=== PATIENT | female | born 1960 | race Caucasian/White ===

== ENCOUNTER → 2017-02-23 | Outpatient (CLI) | payer OTHER | END | disposition home or self-care (01) | LOC: CFH 12:06 | PROVIDERS: ATTEND Internal Medicine | DX: N20.0 Calculus of kidney (principal); M12.88 Other specific arthropathies, not elsewhere classified, other specified site; M47.896 Other spondylosis, lumbar region; D69.6 Thrombocytopenia, unspecified | CPT/HCPCS: 74176 ==

== ENCOUNTER → 2017-09-27 | Outpatient (CLI) | payer OTHER ==
[~2017-09-27] VITALS: Ht 170.2 cm; Wt 121.4 kg
[~2017-09-27] MED LIST: BACL-19 PO; BIMA2.5D EACHEYE; CHOL200024 PO; CIPR250T27 PO; CYAN1SPR2 NS; FENTANYL PF 100 MCG/2ML ONE; FLUT1BLS INH; GABA300C10 PO; HYDR200T PO; HYDR4TAB PO; KETAMINE 10 MG/ML, 20ML ONE; LACTATED RINGERS 1,000 ML IV SCH; LEVO88TA4 PO; LORA1TAB PO; METH4TAB PO; MIDAZOLAM 1 MG/ML, 2ML ONE; MULT-224 PO; OMEP-110 PO; PANT40TA5 PO; PRAV10TA2 PO; PRED10TA PO; PROPOFOL 150 ML ONE; PROPOFOL 50 ML ONE; RANI15SY PO; REMIFENTANIL 2 MG ONE; SERT100T5 PO; tylenol arthritis PO
[2017-09-27 06:51] VITALS: BP 125/77
== END | disposition home or self-care (01) ==
LOC: ORIP 06:15 → UNDOADMIN 06:15 → SDC 06:15 → UNDODISIN 08:41 → EDSTATUS 17:00
PROVIDERS: ATTEND Neurological Surgery
DX: Z01.812 Encounter for preprocedural laboratory examination (principal); M50.00 Cervical disc disorder with myelopathy, unspecified cervical region
CPT/HCPCS: 36415; 85025; 86850; 86900; J0171; J3490; J2250; J2704; J3010; J7120

== ENCOUNTER → 2018-01-12 | Outpatient (CLI) | payer OTHER ==
[~2018-01-12] MED LIST changes: -FENTANYL PF 100 MCG/2ML ONE; -HYDR200T PO; +HYDR200T72 PO; -KETAMINE 10 MG/ML, 20ML ONE; -LACTATED RINGERS 1,000 ML IV SCH; +METH4TAB7 PO; -MIDAZOLAM 1 MG/ML, 2ML ONE; -PROPOFOL 150 ML ONE; -PROPOFOL 50 ML ONE; -REMIFENTANIL 2 MG ONE
[2018-01-12 13:17] LABS: PROTHROMBIN TIME 10.4 Seconds (9.6-11.5)
[2018-01-12 13:19] LABS: MEAN CORPUSCULAR HEMOGLOBIN 32.1 pg (27.0-34.8); MEAN CORPUSCULAR HGB CONC 33.9 g/dL (32.4-35.8); MEAN CORPUSCULAR VOLUME 94.6 fL (80-100); RED BLOOD COUNT 4.91 x10^6/uL (3.82-5.3); RED CELL DISTRIBUTION WIDTH 15.1 % (9.6-15.2)
[2018-01-12 13:20] LABS: ANION GAP 7 mmol/L (5-15); CALCIUM 9.1 mg/dL (8.5-10.1); CHLORIDE 107 mmol/L (98-107); CREATININE 0.83 mg/dL (0.55-1.02)
[2018-01-12 14:02] LABS: MEAN PLATELET VOLUME 9.1 fL (7.4-10.4); PLATELET COUNT 91 x10^3/uL (130-400)
[2018-01-12 14:03] LABS: BASOPHILS # (AUTO) 0.05 x10^3/uL (0-0.1); BASOPHILS % (AUTO) 1 % (0-1); EOSINOPHILS # (AUTO) 0.07 x10^3/uL (0-0.4); EOSINOPHILS % (AUTO) 1 % (1-7); LYMPHOCYTES # (AUTO) 1.65 x10^3/uL (1-3.4); LYMPHOCYTES % (AUTO) 16 % (22-44); MD MORPH REVIEW ONLY; MONOCYTES # (AUTO) 0.63 x10^3/uL (0.2-0.8); MONOCYTES % (AUTO) 6 % (2-9); NEUTROPHILS # (AUTO) 7.89 x10^3/uL (1.8-6.8); NEUTROPHILS % (AUTO) 77 % (42-75)
[2018-01-12 14:05] LABS: <PLATELET ESTIMATE> DECREASED; <PLT MORPHOLOGY> NORMAL PLT MORPH; ANISOCYTOSIS 1+
== END | disposition home or self-care (01) ==
LOC: STAR 11:45
PROVIDERS: ATTEND Neurological Surgery
DX: Z01.818 Encounter for other preprocedural examination (principal); M47.26 Other spondylosis with radiculopathy, lumbar region; M48.061 Spinal stenosis, lumbar region without neurogenic claudication; G56.01 Carpal tunnel syndrome, right upper limb
CPT/HCPCS: 36415; 71046; 80048; 85025; 85610; 85730; 93005

== ENCOUNTER → 2018-05-07 | Outpatient (CLI) | payer OTHER ==
[~2018-05-07] MED LIST changes: +CALC-118 PO; +VARE1TAB21 PO; +[UNRECOGNIZED DRUG - OTHER] PO
[2018-05-07 16:10] LABS: INTERNATIONAL NORMALIZED RATIO 1.02 (0.93-1.1); PROTHROMBIN TIME 10.6 Seconds (9.6-11.5)
[2018-05-07 16:11] LABS: ALANINE AMINOTRANSFERASE 34 U/L (12-78); ALBUMIN 3.8 g/dL (3.4-5.0); ANION GAP 8 mmol/L (5-15); CHLORIDE 110 mmol/L (98-107); CREATININE 0.97 mg/dL (0.55-1.02)
[2018-05-07 16:13] LABS: ALKALINE PHOSPHATASE 74 U/L (45-117); BILIRUBIN,TOTAL 0.6 mg/dL (0.2-1.0); TOTAL PROTEIN 6.8 g/dL (6.4-8.2)
[2018-05-07 16:20] LABS: BASOPHILS # (AUTO) 0.03 x10^3/uL (0-0.1); BASOPHILS % (AUTO) 0 % (0-1); EOSINOPHILS # (AUTO) 0.02 x10^3/uL (0-0.4); EOSINOPHILS % (AUTO) 0 % (1-7); LYMPHOCYTES # (AUTO) 0.97 x10^3/uL (1-3.4); LYMPHOCYTES % (AUTO) 11 % (22-44); MD SCAN; MEAN CORPUSCULAR HGB CONC 33.7 g/dL (32.4-35.8); MEAN CORPUSCULAR VOLUME 94.9 fL (80-100); MEAN PLATELET VOLUME 9.4 fL (7.4-10.4); MONOCYTES % (AUTO) 5 % (2-9); NEUTROPHILS # (AUTO) 7.11 x10^3/uL (1.8-6.8); NEUTROPHILS % (AUTO) 83 % (42-75); PLATELET COUNT 92 x10^3/uL (130-400); RED BLOOD COUNT 4.84 x10^6/uL (3.82-5.3); RED CELL DISTRIBUTION WIDTH 13.2 % (9.6-15.2)
== END | disposition home or self-care (01) ==
LOC: STAR 14:40
PROVIDERS: ATTEND Neurological Surgery
DX: Z01.818 Encounter for other preprocedural examination (principal); M48.061 Spinal stenosis, lumbar region without neurogenic claudication; M43.06 Spondylolysis, lumbar region
CPT/HCPCS: 36415; 71046; 80053; 85025; 85610; 85730; 93005

== ENCOUNTER 2018-05-22 16:19 | Emergency (ER) | payer OTHER ==
[~2018-05-22] VITALS: Ht 170.2 cm; Wt 118.0 kg
[2018-05-22 16:22] VITALS: BP 119/73
== END 2018-05-22 17:34 ==
LOC: ED 17:10
DX: Z02.9 Encounter for administrative examinations, unspecified (principal)

== ENCOUNTER 2018-05-22 17:27 | Inpatient (IN) | payer OTHER ==
[~2018-05-22] VITALS: Ht 170.2 cm; Wt 113.8 kg
[2018-05-22 17:57] VITALS: BP 107/69
[2018-05-22] MEDS ORDERED: HYDROmorphone 4MG TABLET PO PRN (19:30)
[2018-05-22] MEDS ORDERED: ONDANSETRON 2MG/ML, 2ML IVPush PRN (19:30)
[2018-05-22] MEDS ORDERED: HYDROmorphone 2 MG/ML, 1ML IVPush PRN (19:30)
[2018-05-22] MEDS ORDERED: LORAZEPAM 1 MG PO PRN (19:30)
[2018-05-22 19:43] LABS: ALANINE AMINOTRANSFERASE 37 U/L (12-78); ALBUMIN 3.6 g/dL (3.4-5.0); ANION GAP 9 mmol/L (5-15); CALCIUM 8.9 mg/dL (8.5-10.1); CHLORIDE 107 mmol/L (98-107); CREATININE 0.89 mg/dL (0.55-1.02)
[2018-05-22 19:45] LABS: ALKALINE PHOSPHATASE 76 U/L (45-117); BILIRUBIN,TOTAL 0.5 mg/dL (0.2-1.0); TOTAL PROTEIN 6.6 g/dL (6.4-8.2)
[2018-05-22 19:51] LABS: INTERNATIONAL NORMALIZED RATIO 1.04 (0.93-1.1); PROTHROMBIN TIME 10.7 Seconds (9.6-11.5)
[2018-05-22 19:54] VITALS: BP 110/73
[2018-05-22 19:57] LABS: MEAN CORPUSCULAR HEMOGLOBIN 32.8 pg (27.0-34.8); MEAN CORPUSCULAR HGB CONC 34.6 g/dL (32.4-35.8); MEAN CORPUSCULAR VOLUME 94.8 fL (80-100); MEAN PLATELET VOLUME 9.4 fL (7.4-10.4); PLATELET COUNT 81 x10^3/uL (130-400); RED BLOOD COUNT 4.55 x10^6/uL (3.82-5.3); RED CELL DISTRIBUTION WIDTH 13.2 % (9.6-15.2)
[2018-05-22 19:59] LABS: BASOPHILS # (AUTO) 0.02 x10^3/uL (0-0.1); BASOPHILS % (AUTO) 0 % (0-1); EOSINOPHILS # (AUTO) 0.03 x10^3/uL (0-0.4); EOSINOPHILS % (AUTO) 0 % (1-7); LYMPHOCYTES % (AUTO) 13 % (22-44); MD SCAN; MONOCYTES # (AUTO) 0.42 x10^3/uL (0.2-0.8); MONOCYTES % (AUTO) 5 % (2-9); NEUTROPHILS % (AUTO) 81 % (42-75)
[2018-05-22] MEDS ORDERED: NICOTINE 14MG/24 HR PATCH.TD24 TD ONE (20:00)
[2018-05-22] MEDS ORDERED: LORAZEPAM MC SCH (20:00)
[2018-05-22] MEDS ORDERED: VARENICLINE 1MG TABLET PO SCH (21:00)
[2018-05-22] MEDS ORDERED: TYLENOL ARTHRITIS PO SCH (21:00)
[2018-05-22] MEDS ORDERED: HYDROmorphone 2MG TABLET ONE (21:23)
[2018-05-22] MEDS: PRAVASTATIN 20 MG TABLET PO SCH (21:28)
[2018-05-22] MEDS: GABAPENTIN 400 MG CAPSULE PO SCH (21:28)
[2018-05-22] MEDS: BACLOFEN 10 MG TABLET PO SCH (21:28)
[2018-05-22] MEDS: LORazepam 1MG TABLET PO PRN (22:12)
[2018-05-23] VITALS (9 sets, daily range): BP systolic 96–119; BP diastolic 44–75
[2018-05-23] MEDS ORDERED: HYDROCORTISONE 100 MG INJ. IVPush SCH (06:00)
[2018-05-23] MEDS ORDERED: LACTATED RINGERS 1,000 ML IV SCH (06:00)
[2018-05-23 06:03] LABS: BASOPHILS # (AUTO) 0.03 x10^3/uL (0-0.1); BASOPHILS % (AUTO) 0 % (0-1); EOSINOPHILS # (AUTO) 0.06 x10^3/uL (0-0.4); EOSINOPHILS % (AUTO) 1 % (1-7); LYMPHOCYTES # (AUTO) 2.18 x10^3/uL (1-3.4); LYMPHOCYTES % (AUTO) 31 % (22-44); MD NO; MEAN CORPUSCULAR HEMOGLOBIN 31.7 pg (27.0-34.8); MEAN CORPUSCULAR HGB CONC 33.6 g/dL (32.4-35.8); MEAN CORPUSCULAR VOLUME 94.2 fL (80-100); MEAN PLATELET VOLUME 8.9 fL (7.4-10.4); MONOCYTES # (AUTO) 0.41 x10^3/uL (0.2-0.8); MONOCYTES % (AUTO) 6 % (2-9); NEUTROPHILS # (AUTO) 4.31 x10^3/uL (1.8-6.8); NEUTROPHILS % (AUTO) 62 % (42-75); PLATELET COUNT 101 x10^3/uL (130-400); RED BLOOD COUNT 4.34 x10^6/uL (3.82-5.3); RED CELL DISTRIBUTION WIDTH 13.1 % (9.6-15.2)
[2018-05-23 06:22] LABS: CHLORIDE 111 mmol/L (98-107)
[2018-05-23] MEDS ORDERED: BUPIVACAINE/PF-EPI 0.5% 1:200K ONE (06:22)
[2018-05-23 06:23] LABS: ANION GAP 8 mmol/L (5-15); CALCIUM 8.9 mg/dL (8.5-10.1); CREATININE 0.77 mg/dL (0.55-1.02)
[2018-05-23] MEDS ORDERED: THROMBIN 5,000 UNIT VIAL TP ONE (06:23)
[2018-05-23] MEDS ORDERED: BACITRACIN 50,000 UNIT ONE (06:23)
[2018-05-23] MEDS ORDERED: METHYLENE BLUE 10 MG/ML 10ML ONE (06:23)
[2018-05-23] MEDS ORDERED: GABAPENTIN 300 MG CAPSULE PO ONE (07:00)
[2018-05-23] MEDS ORDERED: FAMOTIDINE 20 MG TABLET PO ONE (07:00)
[2018-05-23] MEDS ORDERED: ACETAMINOPHEN 500 MG TABLET PO ONE (07:00)
[2018-05-23] MEDS ORDERED: OxyconTIN ER 20 MG TAB.ER PO ONE (07:00)
[2018-05-23] MEDS ORDERED: FENTANYL PF 250 MCG/5ML ONE (07:01)
[2018-05-23] MEDS ORDERED: PROPOFOL 100 ML ONE (07:01)
[2018-05-23] MEDS ORDERED: MIDAZOLAM 1 MG/ML, 2ML ONE (07:01)
[2018-05-23] MEDS ORDERED: KETAMINE 10 MG/ML, 20ML ONE (07:12)
[2018-05-23] MEDS ORDERED: TRIAMCINOLONE ACETONIDE 40 MG/ML, 1ML ONE (07:12)
[2018-05-23] MEDS ORDERED: DEXAMETHASONE 4 MG/ML, 1ML ONE ×3 (07:18)
[2018-05-23] MEDS ORDERED: PANTOPROZOLE 40MG TABLET PO SCH (07:30)
[2018-05-23] MEDS ORDERED: ONDANSETRON 2MG/ML, 2ML ONE (07:33)
[2018-05-23] MEDS ORDERED: CEFAZOLIN 1,000 MG ONE ×2 (07:56→10:36)
[2018-05-23] MEDS: FLUTICASONE/VILANTEROL 200-25MCG/INH INH SCH (09:00)
[2018-05-23] MEDS: GABAPENTIN 400 MG CAPSULE PO SCH ×3 (09:00→20:16)
[2018-05-23] MEDS: BACLOFEN 10 MG TABLET PO SCH ×3 (09:00→20:15)
[2018-05-23] MEDS ORDERED: ROCURONIUM 10MG/ML,5ML ONE (09:12)
[2018-05-23] MEDS ORDERED: PROPOFOL 10 MG/ML, 20ML ONE ×3 (09:12)
[2018-05-23] MEDS ORDERED: MEPERIDINE/PF 25MG/0.5ML IVPush PRN (09:30)
[2018-05-23] MEDS ORDERED: ALBUTEROL/IPRATROPIUM 2.5MG/0.5MG, 3 ML NPPB PRN (09:30)
[2018-05-23] MEDS ORDERED: HYDROmorphone 1 MG/ML, 1ML IV PRN (09:30)
[2018-05-23] MEDS ORDERED: LABETALOL 5MG/ML, 20ML IV PRN (09:30)
[2018-05-23] MEDS ORDERED: hydrALAzine 20 MG/ML, 1ML IV PRN (09:30)
[2018-05-23] MEDS ORDERED: OXYcodone 5 MG/5 ML ORAL.SOL UDC PO PRN (09:30)
[2018-05-23] MEDS ORDERED: ONDANSETRON 2MG/ML, 2ML IV PRN (09:30)
[2018-05-23] MEDS ORDERED: PROMETHAZINE 25 MG/ML, 1ML IV PRN (09:30)
[2018-05-23] MEDS ORDERED: FENTANYL PF 100 MCG/2ML IV PRN (09:30)
[2018-05-23] MEDS ORDERED: HYDROmorphone 2 MG/ML, 1ML ONE ×2 (09:41→10:13)
[2018-05-23] MEDS ORDERED: OXYcodone 5 MG/5 ML ORAL.SOL UDC ONE (10:13)
[2018-05-23] MEDS ORDERED: HYDROmorphone PCA 30 MG/30 ML IV PRN (11:00)
[2018-05-23] MEDS ORDERED: BISACODYL 10 MG SUPP PR PRN (12:00)
[2018-05-23] MEDS ORDERED: PROMETHAZINE 25 MG/ML, 1ML IM PRN (12:00)
[2018-05-23] MEDS ORDERED: DIPHENHYDRAMINE 50 MG/ML, 1ML IM PRN (12:00)
[2018-05-23] MEDS ORDERED: DIPHENHYDRAMINE 50 MG/ML, 1ML IVPush PRN (12:00)
[2018-05-23] MEDS ORDERED: morphine SULFATE 10 MG/ML, 1ML IV PRN (12:00)
[2018-05-23] MEDS ORDERED: DIPHENHYDRAMINE 50 MG CAPSULE PO PRN (12:00)
[2018-05-23] MEDS ORDERED: METHOCARBAMOL 1,000 MG in DEXTROSE 5% 100 ML IV ONE (12:00)
[2018-05-23] MEDS ORDERED: MAGNESIUM HYDROXIDE 8%, 30ML UDC PO PRN (12:00)
[2018-05-23] MEDS: MULTIVITAMIN 1 TABLET PO SCH (12:04)
[2018-05-23] MEDS: CALCIUM/VITAMIN D3 250-125 TABLET PO SCH (12:04)
[2018-05-23] MEDS: SERTRALINE 100MG TABLET PO SCH (12:17)
[2018-05-23] MEDS: LEVOTHYROXINE 88 MCG TABLET PO SCH (12:17)
[2018-05-23] MEDS: NS + 20MEQ KCL 1,000 ML IV SCH ×2 (12:17→22:47)
[2018-05-23] MEDS: HYDROXYCHLOROQUINE 200 MG TABLET PO SCH (12:57)
[2018-05-23 13:08] LABS: MEAN CORPUSCULAR HEMOGLOBIN 32.3 pg (27.0-34.8); MEAN CORPUSCULAR HGB CONC 34.1 g/dL (32.4-35.8); MEAN CORPUSCULAR VOLUME 94.9 fL (80-100); MEAN PLATELET VOLUME 8.8 fL (7.4-10.4); PLATELET COUNT 88 x10^3/uL (130-400); RED BLOOD COUNT 4.34 x10^6/uL (3.82-5.3); RED CELL DISTRIBUTION WIDTH 13.4 % (9.6-15.2)
[2018-05-23 13:42] LABS: BASOPHILS % (AUTO) 0 % (0-1); EOSINOPHILS % (AUTO) 0 % (1-7); LYMPHOCYTES # (AUTO) 0.45 x10^3/uL (1-3.4); LYMPHOCYTES % (AUTO) 6 % (22-44); MD SCAN; MONOCYTES # (AUTO) 0.07 x10^3/uL (0.2-0.8); MONOCYTES % (AUTO) 1 % (2-9); NEUTROPHILS # (AUTO) 7.58 x10^3/uL (1.8-6.8); NEUTROPHILS % (AUTO) 94 % (42-75)
[2018-05-23] MEDS: methylPREDNISolone SOD SUCC 125 MG/2 ML IVPush SCH ×2 (15:26→20:15)
[2018-05-23] MEDS: CEFAZOLIN PMX 2GM/50ML 50 ML IVPB SCH ×2 (15:27→22:47)
[2018-05-23] MEDS ORDERED: PANTOPROZOLE 40MG TABLET ONE (20:09)
[2018-05-23] MEDS: LIDODERM 5% PATCH TD SCH (20:14)
[2018-05-23] MEDS: METHOCARBAMOL 750 MG in DEXTROSE 5% 100 ML IV SCH (20:15)
[2018-05-23] MEDS: PRAVASTATIN 20 MG TABLET PO SCH (20:15)
[2018-05-23] MEDS: PANTOPROZOLE 40MG TABLET PO SCH (20:16)
[2018-05-23] MEDS ORDERED: ZOLPIDEM 5MG TABLET PO PRN (21:00)
[2018-05-24] MEDS: METHOCARBAMOL 750 MG in DEXTROSE 5% 100 ML IV SCH ×3 (03:20→20:27)
[2018-05-24] MEDS: methylPREDNISolone SOD SUCC 125 MG/2 ML IVPush SCH ×2 (03:20→09:01)
[2018-05-24 04:40] LABS: ALBUMIN 3.1 g/dL (3.4-5.0); ANION GAP 8 mmol/L (5-15); CALCIUM 8.4 mg/dL (8.5-10.1); CHLORIDE 111 mmol/L (98-107)
[2018-05-24 04:44] LABS: ALANINE AMINOTRANSFERASE 36 U/L (12-78); ALKALINE PHOSPHATASE 72 U/L (45-117); BILIRUBIN,TOTAL 0.4 mg/dL (0.2-1.0); TOTAL PROTEIN 6.4 g/dL (6.4-8.2)
[2018-05-24 04:45] LABS: BASOPHILS # (AUTO) 0.01 x10^3/uL (0-0.1); BASOPHILS % (AUTO) 0 % (0-1); EOSINOPHILS % (AUTO) 0 % (1-7); LYMPHOCYTES # (AUTO) 0.57 x10^3/uL (1-3.4); LYMPHOCYTES % (AUTO) 5 % (22-44); MD NO; MEAN CORPUSCULAR HEMOGLOBIN 31.8 pg (27.0-34.8); MEAN CORPUSCULAR HGB CONC 33.6 g/dL (32.4-35.8); MEAN CORPUSCULAR VOLUME 94.7 fL (80-100); MEAN PLATELET VOLUME 9.2 fL (7.4-10.4); MONOCYTES # (AUTO) 0.29 x10^3/uL (0.2-0.8); MONOCYTES % (AUTO) 3 % (2-9); NEUTROPHILS # (AUTO) 10.49 x10^3/uL (1.8-6.8); NEUTROPHILS % (AUTO) 92 % (42-75); PLATELET COUNT 105 x10^3/uL (130-400); RED BLOOD COUNT 4.37 x10^6/uL (3.82-5.3)
[2018-05-24] MEDS: FLUTICASONE/VILANTEROL 200-25MCG/INH INH SCH (09:01)
[2018-05-24] MEDS: CEFAZOLIN PMX 2GM/50ML 50 ML IVPB SCH ×2 (09:01→16:33)
[2018-05-24] MEDS: GABAPENTIN 400 MG CAPSULE PO SCH ×3 (09:02→20:28)
[2018-05-24] MEDS: CALCIUM/VITAMIN D3 250-125 TABLET PO SCH (09:02)
[2018-05-24] MEDS: PANTOPROZOLE 40MG TABLET PO SCH ×2 (09:02→20:28)
[2018-05-24] MEDS: MULTIVITAMIN 1 TABLET PO SCH (09:02)
[2018-05-24] MEDS: SENNA/DOCUSATE TABLET PO SCH (09:03)
[2018-05-24] MEDS: HYDROXYCHLOROQUINE 200 MG TABLET PO SCH (09:03)
[2018-05-24] MEDS: SERTRALINE 100MG TABLET PO SCH (09:04)
[2018-05-24] MEDS: LEVOTHYROXINE 88 MCG TABLET PO SCH (09:04)
[2018-05-24] MEDS: BACLOFEN 10 MG TABLET PO SCH ×3 (09:13→20:28)
[2018-05-24] MEDS ORDERED: CALCIUM CARBONATE 500 MG TAB.CHEW PO PRN (11:00)
[2018-05-24] MEDS ORDERED: KETOROLAC 30 MG/1 ML IVPush SCH (11:00)
[2018-05-24] MEDS: VARENICLINE 1MG TABLET PO SCH ×2 (11:11→18:49)
[2018-05-24] MEDS ORDERED: KETOROLAC 30 MG/1 ML IVPush PRN (11:30)
[2018-05-24] MEDS ORDERED: HYDROmorphone 2MG TABLET ONE (12:13)
[2018-05-24] MEDS: HYDROmorphone 4MG TABLET PO PRN (12:15)
[2018-05-24] MEDS: HYDROCORTISONE 100 MG INJ. IVPush SCH (16:32)
[2018-05-24 16:44] VITALS: BP 100/66
[2018-05-24 19:53] VITALS: BP 116/74
[2018-05-24] MEDS: LIDODERM 5% PATCH TD SCH (20:27)
[2018-05-24] MEDS: PRAVASTATIN 20 MG TABLET PO SCH (20:27)
[2018-05-25] MEDS: HYDROCORTISONE 100 MG INJ. IVPush SCH ×3 (00:58→16:11)
[2018-05-25 02:05] VITALS: BP 126/80
[2018-05-25] MEDS: METHOCARBAMOL 750 MG in DEXTROSE 5% 100 ML IV SCH ×2 (04:04→12:24)
[2018-05-25 06:02] LABS: ALANINE AMINOTRANSFERASE 34 U/L (12-78); ALBUMIN 2.8 g/dL (3.4-5.0); ANION GAP 8 mmol/L (5-15); CALCIUM 8.5 mg/dL (8.5-10.1); CHLORIDE 112 mmol/L (98-107); CREATININE 0.66 mg/dL (0.55-1.02)
[2018-05-25 06:04] LABS: ALKALINE PHOSPHATASE 73 U/L (45-117); BILIRUBIN,TOTAL 0.4 mg/dL (0.2-1.0); TOTAL PROTEIN 6.1 g/dL (6.4-8.2)
[2018-05-25 06:22] LABS: BASOPHILS # (AUTO) 0.01 x10^3/uL (0-0.1); BASOPHILS % (AUTO) 0 % (0-1); EOSINOPHILS # (AUTO) 0.01 x10^3/uL (0-0.4); EOSINOPHILS % (AUTO) 0 % (1-7); LYMPHOCYTES # (AUTO) 0.76 x10^3/uL (1-3.4); LYMPHOCYTES % (AUTO) 6 % (22-44); MD SCAN; MEAN CORPUSCULAR HEMOGLOBIN 32.7 pg (27.0-34.8); MEAN CORPUSCULAR HGB CONC 34.1 g/dL (32.4-35.8); MEAN CORPUSCULAR VOLUME 95.8 fL (80-100); MEAN PLATELET VOLUME 9.3 fL (7.4-10.4); MONOCYTES # (AUTO) 0.47 x10^3/uL (0.2-0.8); MONOCYTES % (AUTO) 4 % (2-9); NEUTROPHILS # (AUTO) 12.12 x10^3/uL (1.8-6.8); NEUTROPHILS % (AUTO) 91 % (42-75); PLATELET COUNT 100 x10^3/uL (130-400); RED BLOOD COUNT 4.64 x10^6/uL (3.82-5.3); RED CELL DISTRIBUTION WIDTH 13.3 % (9.6-15.2)
[2018-05-25] MEDS ORDERED: HYDROmorphone 2MG TABLET ONE ×3 (06:29→20:30)
[2018-05-25] MEDS: HYDROmorphone 4MG TABLET PO PRN ×3 (06:30→20:33)
[2018-05-25 08:09] VITALS: BP 119/71
[2018-05-25] MEDS: FLUTICASONE/VILANTEROL 200-25MCG/INH INH SCH (08:48)
[2018-05-25] MEDS: CALCIUM/VITAMIN D3 250-125 TABLET PO SCH (08:49)
[2018-05-25] MEDS: LEVOTHYROXINE 88 MCG TABLET PO SCH (08:49)
[2018-05-25] MEDS: SERTRALINE 100MG TABLET PO SCH (08:50)
[2018-05-25] MEDS: PANTOPROZOLE 40MG TABLET PO SCH ×2 (08:50→20:33)
[2018-05-25] MEDS: HYDROXYCHLOROQUINE 200 MG TABLET PO SCH (08:50)
[2018-05-25] MEDS: VARENICLINE 1MG TABLET PO SCH ×2 (08:50→20:32)
[2018-05-25] MEDS: SENNA/DOCUSATE TABLET PO SCH (08:51)
[2018-05-25] MEDS: MULTIVITAMIN 1 TABLET PO SCH (08:51)
[2018-05-25] MEDS: BACLOFEN 10 MG TABLET PO SCH ×3 (08:51→20:32)
[2018-05-25] MEDS: GABAPENTIN 400 MG CAPSULE PO SCH ×3 (08:51→20:34)
[2018-05-25 13:39] VITALS: BP 98/63
[2018-05-25] MEDS ORDERED: MAALOX/HYOSCYAMINE/LIDOCAINE 45 ML BTL PO ONE (14:30)
[2018-05-25 19:23] VITALS: BP 118/61
[2018-05-25] MEDS: METHOCARBAMOL 750 MG TABLET PO SCH (20:00)
[2018-05-25] MEDS: LIDODERM 5% PATCH TD SCH (20:32)
[2018-05-25] MEDS: PRAVASTATIN 20 MG TABLET PO SCH (20:33)
[2018-05-26 02:11] VITALS: BP 106/71
[2018-05-26] MEDS: METHOCARBAMOL 750 MG TABLET PO SCH ×4 (04:00→21:26)
[2018-05-26] MEDS ORDERED: HYDROmorphone 2MG TABLET ONE ×2 (06:04→09:49)
[2018-05-26] MEDS: HYDROmorphone 4MG TABLET PO PRN ×3 (06:06→20:23)
[2018-05-26 08:21] VITALS: BP 94/61
[2018-05-26] MEDS: ALBUTEROL/IPRATROPIUM 2.5MG/0.5MG, 3 ML NPPB SCH ×4 (08:35→18:48)
[2018-05-26] MEDS ORDERED: ALBUTEROL/IPRATROPIUM 2.5MG/0.5MG, 3 ML ONE (08:39)
[2018-05-26] MEDS: SENNA/DOCUSATE TABLET PO SCH (09:00)
[2018-05-26] MEDS: VARENICLINE 1MG TABLET PO SCH ×2 (09:00→20:21)
[2018-05-26] MEDS: PANTOPROZOLE 40MG TABLET PO SCH ×2 (09:00→20:22)
[2018-05-26] MEDS: GABAPENTIN 400 MG CAPSULE PO SCH ×4 (09:00→20:31)
[2018-05-26] MEDS: MULTIVITAMIN 1 TABLET PO SCH (09:00)
[2018-05-26] MEDS: SERTRALINE 100MG TABLET PO SCH (09:00)
[2018-05-26] MEDS: HYDROXYCHLOROQUINE 200 MG TABLET PO SCH (09:00)
[2018-05-26] MEDS: BACLOFEN 10 MG TABLET PO SCH ×3 (09:00→20:22)
[2018-05-26] MEDS: LEVOTHYROXINE 88 MCG TABLET PO SCH (09:00)
[2018-05-26] MEDS: FLUTICASONE/VILANTEROL 200-25MCG/INH INH SCH (09:00)
[2018-05-26] MEDS: CALCIUM/VITAMIN D3 250-125 TABLET PO SCH (09:00)
[2018-05-26 09:43] LABS: O2 FLOW 6L L/min
[2018-05-26 10:42] LABS: ANION GAP 9 mmol/L (5-15); CALCIUM 8.5 mg/dL (8.5-10.1); CHLORIDE 107 mmol/L (98-107); CREATININE 0.77 mg/dL (0.55-1.02)
[2018-05-26 10:46] LABS: TROPONIN I < 0.015 ng/mL (0.000-0.045)
[2018-05-26 10:58] LABS: MEAN CORPUSCULAR HEMOGLOBIN 32.7 pg (27.0-34.8); MEAN CORPUSCULAR HGB CONC 34.4 g/dL (32.4-35.8); MEAN CORPUSCULAR VOLUME 95.1 fL (80-100); MEAN PLATELET VOLUME 8.9 fL (7.4-10.4); PLATELET COUNT 80 x10^3/uL (130-400); RED BLOOD COUNT 4.49 x10^6/uL (3.82-5.3); RED CELL DISTRIBUTION WIDTH 13.1 % (9.6-15.2)
[2018-05-26 11:04] LABS: BASOPHILS # (AUTO) 0.02 x10^3/uL (0-0.1); BASOPHILS % (AUTO) 0 % (0-1); EOSINOPHILS # (AUTO) 0.01 x10^3/uL (0-0.4); EOSINOPHILS % (AUTO) 0 % (1-7); LYMPHOCYTES # (AUTO) 1.08 x10^3/uL (1-3.4); LYMPHOCYTES % (AUTO) 13 % (22-44); MD SCAN; MONOCYTES # (AUTO) 0.08 x10^3/uL (0.2-0.8); MONOCYTES % (AUTO) 1 % (2-9); NEUTROPHILS # (AUTO) 7.29 x10^3/uL (1.8-6.8); NEUTROPHILS % (AUTO) 86 % (42-75)
[2018-05-26 12:19] VITALS: BP 90/61
[2018-05-26] MEDS ORDERED: FUROSEMIDE 40 MG/4 ML IV STA (13:02)
[2018-05-26] MEDS ORDERED: POTASSIUM CHLORIDE 20 MEQ TAB.ER.PRT PO ONE (13:30)
[2018-05-26 14:36] LABS: TROPONIN I < 0.015 ng/mL (0.000-0.045)
[2018-05-26] MEDS: FUROSEMIDE 40 MG/4 ML IV SCH (18:35)
[2018-05-26] MEDS ORDERED: POTASSIUM CHLORIDE 10% 40 MEQ/30 ML UDC PO ONE (19:00)
[2018-05-26] MEDS: LIDODERM 5% PATCH TD SCH (20:21)
[2018-05-26] MEDS: PRAVASTATIN 20 MG TABLET PO SCH (20:23)
[2018-05-27 04:34] LABS: MEAN CORPUSCULAR HEMOGLOBIN 32.7 pg (27.0-34.8); MEAN CORPUSCULAR HGB CONC 34.4 g/dL (32.4-35.8); RED BLOOD COUNT 4.18 x10^6/uL (3.82-5.3); RED CELL DISTRIBUTION WIDTH 13.5 % (9.6-15.2)
[2018-05-27 04:45] LABS: CHLORIDE 107 mmol/L (98-107)
[2018-05-27] MEDS: HYDROmorphone 4MG TABLET PO PRN ×5 (04:51→21:27)
[2018-05-27 04:54] LABS: BASOPHILS % (AUTO) 0 % (0-1); EOSINOPHILS # (AUTO) 0.01 x10^3/uL (0-0.4); EOSINOPHILS % (AUTO) 0 % (1-7); LYMPHOCYTES # (AUTO) 0.54 x10^3/uL (1-3.4); LYMPHOCYTES % (AUTO) 6 % (22-44); MD SCAN; MEAN PLATELET VOLUME 9.5 fL (7.4-10.4); MONOCYTES # (AUTO) 0.06 x10^3/uL (0.2-0.8); MONOCYTES % (AUTO) 1 % (2-9); NEUTROPHILS # (AUTO) 7.84 x10^3/uL (1.8-6.8); NEUTROPHILS % (AUTO) 93 % (42-75); PLATELET COUNT 71 x10^3/uL (130-400)
[2018-05-27 05:02] LABS: ALANINE AMINOTRANSFERASE 30 U/L (12-78); ALBUMIN 2.5 g/dL (3.4-5.0); ALKALINE PHOSPHATASE 85 U/L (45-117); ANION GAP 5 mmol/L (5-15); BILIRUBIN,TOTAL 1.4 mg/dL (0.2-1.0); CALCIUM 8.2 mg/dL (8.5-10.1); CREATININE 0.76 mg/dL (0.55-1.02); TOTAL PROTEIN 5.8 g/dL (6.4-8.2)
[2018-05-27] MEDS: ONDANSETRON 2MG/ML, 2ML IV PRN (05:10)
[2018-05-27] MEDS: METHOCARBAMOL 750 MG TABLET PO SCH ×3 (05:10→20:56)
[2018-05-27] MEDS: ALBUTEROL/IPRATROPIUM 2.5MG/0.5MG, 3 ML NPPB SCH ×4 (07:16→19:12)
[2018-05-27] MEDS: HEPARIN 5,000 UNITS/ML, 1ML SQ SCH ×2 (09:03→20:55)
[2018-05-27] MEDS: FLUTICASONE/VILANTEROL 200-25MCG/INH INH SCH (09:04)
[2018-05-27] MEDS: FUROSEMIDE 40 MG/4 ML IV SCH ×2 (09:04→17:34)
[2018-05-27] MEDS: HYDROXYCHLOROQUINE 200 MG TABLET PO SCH (09:05)
[2018-05-27] MEDS: GABAPENTIN 400 MG CAPSULE PO SCH ×3 (09:05→20:56)
[2018-05-27] MEDS: BACLOFEN 10 MG TABLET PO SCH ×3 (09:05→20:56)
[2018-05-27] MEDS: LEVOTHYROXINE 88 MCG TABLET PO SCH (09:05)
[2018-05-27] MEDS: MULTIVITAMIN 1 TABLET PO SCH (09:05)
[2018-05-27] MEDS: SENNA/DOCUSATE TABLET PO SCH (09:05)
[2018-05-27] MEDS: SERTRALINE 100MG TABLET PO SCH (09:06)
[2018-05-27] MEDS: PANTOPROZOLE 40MG TABLET PO SCH ×2 (09:06→20:56)
[2018-05-27] MEDS: VARENICLINE 1MG TABLET PO SCH ×2 (09:06→20:56)
[2018-05-27] MEDS: CALCIUM/VITAMIN D3 250-125 TABLET PO SCH (09:06)
[2018-05-27] MEDS: PRAVASTATIN 20 MG TABLET PO SCH (20:56)
[2018-05-27] MEDS: LIDODERM 5% PATCH TD SCH (20:58)
[2018-05-27 22:13] VITALS: BP 87/42
[2018-05-27 22:37] VITALS: BP 91/46
[2018-05-28 04:41] LABS: MEAN CORPUSCULAR HEMOGLOBIN 32.6 pg (27.0-34.8); MEAN CORPUSCULAR VOLUME 95.8 fL (80-100); MEAN PLATELET VOLUME 9.3 fL (7.4-10.4); PLATELET COUNT 81 x10^3/uL (130-400); RED CELL DISTRIBUTION WIDTH 13.6 % (9.6-15.2)
[2018-05-28 04:51] LABS: ANION GAP 8 mmol/L (5-15); CALCIUM 8.7 mg/dL (8.5-10.1); CHLORIDE 102 mmol/L (98-107); CREATININE 0.83 mg/dL (0.55-1.02)
[2018-05-28 05:40] LABS: BASOPHILS # (AUTO) 0.01 x10^3/uL (0-0.1); BASOPHILS % (AUTO) 0 % (0-1); EOSINOPHILS # (AUTO) 0.06 x10^3/uL (0-0.4); EOSINOPHILS % (AUTO) 1 % (1-7); LYMPHOCYTES # (AUTO) 0.58 x10^3/uL (1-3.4); LYMPHOCYTES % (AUTO) 7 % (22-44); MD SCAN; MONOCYTES # (AUTO) 0.06 x10^3/uL (0.2-0.8); MONOCYTES % (AUTO) 1 % (2-9); NEUTROPHILS # (AUTO) 7.65 x10^3/uL (1.8-6.8); NEUTROPHILS % (AUTO) 92 % (42-75)
[2018-05-28] MEDS: METHOCARBAMOL 750 MG TABLET PO SCH ×3 (06:11→22:17)
[2018-05-28] MEDS: FUROSEMIDE 40 MG/4 ML IV SCH ×2 (06:12→18:33)
[2018-05-28] MEDS: HYDROmorphone 4MG TABLET PO PRN ×5 (06:12→23:16)
[2018-05-28] MEDS: ALBUTEROL/IPRATROPIUM 2.5MG/0.5MG, 3 ML NPPB SCH (07:33)
[2018-05-28] MEDS: MULTIVITAMIN 1 TABLET PO SCH (09:00)
[2018-05-28] MEDS: CALCIUM/VITAMIN D3 250-125 TABLET PO SCH (09:00)
[2018-05-28] MEDS: GABAPENTIN 400 MG CAPSULE PO SCH ×3 (09:00→21:00)
[2018-05-28] MEDS: BACLOFEN 10 MG TABLET PO SCH ×3 (09:12→22:18)
[2018-05-28] MEDS: LEVOTHYROXINE 88 MCG TABLET PO SCH (09:13)
[2018-05-28] MEDS: SERTRALINE 100MG TABLET PO SCH (09:13)
[2018-05-28] MEDS: HEPARIN 5,000 UNITS/ML, 1ML SQ SCH ×2 (09:14→22:16)
[2018-05-28] MEDS: PANTOPROZOLE 40MG TABLET PO SCH ×2 (09:14→22:22)
[2018-05-28] MEDS: VARENICLINE 1MG TABLET PO SCH ×2 (09:15→21:00)
[2018-05-28] MEDS: HYDROXYCHLOROQUINE 200 MG TABLET PO SCH (09:15)
[2018-05-28] MEDS: SENNA/DOCUSATE TABLET PO SCH (09:16)
[2018-05-28] MEDS: FLUTICASONE/VILANTEROL 200-25MCG/INH INH SCH (09:26)
[2018-05-28] MEDS: POTASSIUM CHLORIDE 20 MEQ TAB.ER.PRT PO SCH ×2 (09:30→18:33)
[2018-05-28] MEDS ORDERED: ALBUTEROL/IPRATROPIUM 2.5MG/0.5MG, 3 ML ONE (10:22)
[2018-05-28] MEDS: ACETAMINOPHEN 325 MG TABLET PO SCH ×2 (10:55→22:17)
[2018-05-28] MEDS: ALBUTEROL/IPRATROPIUM 2.5MG/0.5MG, 3 ML IPPB SCH ×4 (11:00→22:38)
[2018-05-28 11:06] LABS: PLATELET (PFA) 86 x10^3/uL (130-400)
[2018-05-28] MEDS: MEROPENEM 1 GM in SODIUM CHLORIDE 0.9% 100 ML IV SCH ×2 (14:42→22:25)
[2018-05-28] MEDS: LIDODERM 5% PATCH TD SCH (20:02)
[2018-05-28] MEDS: PRAVASTATIN 20 MG TABLET PO SCH (22:17)
[2018-05-29] MEDS: ALBUTEROL/IPRATROPIUM 2.5MG/0.5MG, 3 ML IPPB SCH ×6 (02:20→22:42)
[2018-05-29] MEDS: HYDROmorphone 4MG TABLET PO PRN ×4 (03:46→21:51)
[2018-05-29 04:33] LABS: PLATELET (PFA) 78 x10^3/uL (130-400)
[2018-05-29 04:39] LABS: ANION GAP 5 mmol/L (5-15); CALCIUM 9.1 mg/dL (8.5-10.1); CHLORIDE 100 mmol/L (98-107); CREATININE 1.08 mg/dL (0.55-1.02)
[2018-05-29 04:40] LABS: MEAN CORPUSCULAR HEMOGLOBIN 32.5 pg (27.0-34.8); MEAN CORPUSCULAR HGB CONC 33.9 g/dL (32.4-35.8); MEAN CORPUSCULAR VOLUME 95.7 fL (80-100); MEAN PLATELET VOLUME 10.3 fL (7.4-10.4); PLATELET COUNT 80 x10^3/uL (130-400); RED BLOOD COUNT 4.01 x10^6/uL (3.82-5.3); RED CELL DISTRIBUTION WIDTH 13.3 % (9.6-15.2)
[2018-05-29 05:00] LABS: BASOPHILS % (AUTO) 0 % (0-1); EOSINOPHILS # (AUTO) 0.05 x10^3/uL (0-0.4); EOSINOPHILS % (AUTO) 1 % (1-7); LYMPHOCYTES # (AUTO) 0.61 x10^3/uL (1-3.4); LYMPHOCYTES % (AUTO) 11 % (22-44); MD SCAN; MONOCYTES # (AUTO) 0.17 x10^3/uL (0.2-0.8); MONOCYTES % (AUTO) 3 % (2-9); NEUTROPHILS # (AUTO) 4.94 x10^3/uL (1.8-6.8); NEUTROPHILS % (AUTO) 86 % (42-75)
[2018-05-29] MEDS: MEROPENEM 1 GM in SODIUM CHLORIDE 0.9% 100 ML IV SCH ×2 (06:17→15:17)
[2018-05-29] MEDS: FUROSEMIDE 40 MG/4 ML IV SCH ×2 (06:17→14:09)
[2018-05-29] MEDS: METHOCARBAMOL 750 MG TABLET PO SCH ×3 (06:18→22:11)
[2018-05-29] MEDS: FLUTICASONE/VILANTEROL 200-25MCG/INH INH SCH (09:00)
[2018-05-29] MEDS: VARENICLINE 1MG TABLET PO SCH ×2 (09:00→21:00)
[2018-05-29] MEDS: GABAPENTIN 400 MG CAPSULE PO SCH ×3 (09:00→21:00)
[2018-05-29] MEDS: HYDROXYCHLOROQUINE 200 MG TABLET PO SCH (09:00)
[2018-05-29] MEDS: SENNA/DOCUSATE TABLET PO SCH (09:00)
[2018-05-29] MEDS: MULTIVITAMIN 1 TABLET PO SCH (09:00)
[2018-05-29] MEDS: BACLOFEN 10 MG TABLET PO SCH ×3 (09:00→21:52)
[2018-05-29] MEDS: CALCIUM/VITAMIN D3 250-125 TABLET PO SCH (09:00)
[2018-05-29] MEDS: POTASSIUM CHLORIDE 20 MEQ TAB.ER.PRT PO SCH ×2 (09:15→21:53)
[2018-05-29] MEDS: HEPARIN 5,000 UNITS/ML, 1ML SQ SCH ×2 (10:26→21:54)
[2018-05-29] MEDS: ACETAMINOPHEN 325 MG TABLET PO SCH ×2 (10:26→21:00)
[2018-05-29] MEDS: AcetaZOLAMIDE INJ 500 MG IVPush SCH ×2 (10:26→21:55)
[2018-05-29] MEDS: LEVOTHYROXINE 88 MCG TABLET PO SCH (10:27)
[2018-05-29] MEDS: SERTRALINE 100MG TABLET PO SCH (10:27)
[2018-05-29] MEDS: PANTOPROZOLE 40MG TABLET PO SCH ×2 (10:27→21:52)
[2018-05-29] MEDS: LIDODERM 5% PATCH TD SCH ×2 (20:00→20:31)
[2018-05-29] MEDS: PRAVASTATIN 20 MG TABLET PO SCH (21:53)
[2018-05-29] MEDS: LORazepam 1MG TABLET PO PRN (22:11)
[2018-05-30] MEDS: HYDROmorphone 4MG TABLET PO PRN ×2 (02:01→21:01)
[2018-05-30] MEDS: ALBUTEROL/IPRATROPIUM 2.5MG/0.5MG, 3 ML IPPB SCH ×6 (02:47→23:00)
[2018-05-30] MEDS: FUROSEMIDE 40 MG/4 ML IV SCH ×3 (03:36→21:01)
[2018-05-30] MEDS: MEROPENEM 1 GM in SODIUM CHLORIDE 0.9% 100 ML IV SCH (03:37)
[2018-05-30 04:27] LABS: PLATELET (PFA) 93 x10^3/uL (130-400)
[2018-05-30 04:37] LABS: ANION GAP 9 mmol/L (5-15); CALCIUM 8.8 mg/dL (8.5-10.1); CHLORIDE 105 mmol/L (98-107); CREATININE 0.75 mg/dL (0.55-1.02)
[2018-05-30 04:42] LABS: FIO2 70 %
[2018-05-30] MEDS: METHOCARBAMOL 750 MG TABLET PO SCH ×3 (06:34→21:01)
[2018-05-30] MEDS: GABAPENTIN 400 MG CAPSULE PO SCH ×3 (09:00→21:00)
[2018-05-30] MEDS: VARENICLINE 1MG TABLET PO SCH ×2 (09:00→21:00)
[2018-05-30] MEDS: FLUTICASONE/VILANTEROL 200-25MCG/INH INH SCH (10:09)
[2018-05-30] MEDS: AcetaZOLAMIDE INJ 500 MG IVPush SCH (10:12)
[2018-05-30] MEDS: PANTOPROZOLE 40MG TABLET PO SCH ×2 (10:12→21:01)
[2018-05-30] MEDS: MULTIVITAMIN 1 TABLET PO SCH (10:12)
[2018-05-30] MEDS: SENNA/DOCUSATE TABLET PO SCH (10:13)
[2018-05-30] MEDS: ACETAMINOPHEN 325 MG TABLET PO SCH ×2 (10:13→21:01)
[2018-05-30] MEDS: BACLOFEN 10 MG TABLET PO SCH ×3 (10:13→21:01)
[2018-05-30] MEDS: CALCIUM/VITAMIN D3 250-125 TABLET PO SCH (10:13)
[2018-05-30] MEDS: LEVOTHYROXINE 88 MCG TABLET PO SCH (10:14)
[2018-05-30] MEDS: POTASSIUM CHLORIDE 20 MEQ TAB.ER.PRT PO SCH (10:14)
[2018-05-30] MEDS: SERTRALINE 100MG TABLET PO SCH (10:14)
[2018-05-30] MEDS: HYDROXYCHLOROQUINE 200 MG TABLET PO SCH (10:14)
[2018-05-30] MEDS: HEPARIN 5,000 UNITS/ML, 1ML SQ SCH ×2 (10:15→21:01)
[2018-05-30] MEDS: LIDODERM 5% PATCH TD SCH (20:00)
[2018-05-30] MEDS: PRAVASTATIN 20 MG TABLET PO SCH (21:01)
[2018-05-30] MEDS: LORazepam 1MG TABLET PO PRN (21:38)
[2018-05-31] MEDS: ALBUTEROL/IPRATROPIUM 2.5MG/0.5MG, 3 ML IPPB SCH ×4 (02:55→13:45)
[2018-05-31] MEDS: HYDROmorphone 4MG TABLET PO PRN ×4 (04:28→21:12)
[2018-05-31 04:43] LABS: BASOPHILS # (AUTO) 0.01 x10^3/uL (0-0.1); BASOPHILS % (AUTO) 0 % (0-1); EOSINOPHILS # (AUTO) 0.09 x10^3/uL (0-0.4); EOSINOPHILS % (AUTO) 1 % (1-7); LYMPHOCYTES # (AUTO) 0.87 x10^3/uL (1-3.4); LYMPHOCYTES % (AUTO) 14 % (22-44); MD NO; MEAN CORPUSCULAR HGB CONC 34.5 g/dL (32.4-35.8); MEAN CORPUSCULAR VOLUME 92.8 fL (80-100); MEAN PLATELET VOLUME 9.9 fL (7.4-10.4); MONOCYTES # (AUTO) 0.22 x10^3/uL (0.2-0.8); MONOCYTES % (AUTO) 4 % (2-9); NEUTROPHILS # (AUTO) 5.21 x10^3/uL (1.8-6.8); NEUTROPHILS % (AUTO) 81 % (42-75); PLATELET COUNT 105 x10^3/uL (130-400); RED CELL DISTRIBUTION WIDTH 13.7 % (9.6-15.2)
[2018-05-31 04:55] LABS: CHLORIDE 104 mmol/L (98-107)
[2018-05-31 05:04] LABS: ALANINE AMINOTRANSFERASE 51 U/L (12-78); ALBUMIN 2.4 g/dL (3.4-5.0); ALKALINE PHOSPHATASE 233 U/L (45-117); ANION GAP 11 mmol/L (5-15); BILIRUBIN,TOTAL 1.3 mg/dL (0.2-1.0); CALCIUM 9.3 mg/dL (8.5-10.1); CREATININE 0.82 mg/dL (0.55-1.02); TOTAL PROTEIN 7.2 g/dL (6.4-8.2)
[2018-05-31 05:19] LABS: PLATELET (PFA) 105 x10^3/uL (130-400)
[2018-05-31] MEDS: METHOCARBAMOL 750 MG TABLET PO SCH ×3 (05:40→20:58)
[2018-05-31] MEDS: FUROSEMIDE 40 MG/4 ML IV SCH ×3 (05:40→22:00)
[2018-05-31] MEDS: CALCIUM/VITAMIN D3 250-125 TABLET PO SCH (08:40)
[2018-05-31] MEDS: SENNA/DOCUSATE TABLET PO SCH (08:41)
[2018-05-31] MEDS: ACETAMINOPHEN 325 MG TABLET PO SCH ×3 (08:41→20:58)
[2018-05-31] MEDS: HEPARIN 5,000 UNITS/ML, 1ML SQ SCH ×2 (08:41→21:08)
[2018-05-31] MEDS: SERTRALINE 100MG TABLET PO SCH (08:41)
[2018-05-31] MEDS: PANTOPROZOLE 40MG TABLET PO SCH ×2 (08:41→20:58)
[2018-05-31] MEDS: BACLOFEN 10 MG TABLET PO SCH ×3 (08:41→20:57)
[2018-05-31] MEDS: MULTIVITAMIN 1 TABLET PO SCH (08:42)
[2018-05-31] MEDS: GABAPENTIN 400 MG CAPSULE PO SCH ×3 (08:42→16:00)
[2018-05-31] MEDS: HYDROXYCHLOROQUINE 200 MG TABLET PO SCH (08:42)
[2018-05-31] MEDS: VARENICLINE 1MG TABLET PO SCH ×3 (08:42→21:00)
[2018-05-31] MEDS: FLUTICASONE/VILANTEROL 200-25MCG/INH INH SCH (08:42)
[2018-05-31] MEDS: LEVOTHYROXINE 88 MCG TABLET PO SCH (12:05)
[2018-05-31] MEDS: ALBUTEROL/IPRATROPIUM 2.5MG/0.5MG, 3 ML NPPB SCH ×3 (14:00→22:00)
[2018-05-31] MEDS: LORazepam 1MG TABLET PO PRN (14:45)
[2018-05-31] MEDS: GABAPENTIN 250 MG/5 ML ORAL SOL PO SCH (18:11)
[2018-05-31] MEDS: LIDODERM 5% PATCH TD SCH (20:00)
[2018-05-31] MEDS: PRAVASTATIN 20 MG TABLET PO SCH (20:58)
[2018-06-01] MEDS: ALBUTEROL/IPRATROPIUM 2.5MG/0.5MG, 3 ML NPPB SCH ×6 (02:00→22:00)
[2018-06-01] MEDS: GABAPENTIN 250 MG/5 ML ORAL SOL PO SCH ×3 (02:30→18:06)
[2018-06-01 04:26] LABS: BASOPHILS # (AUTO) 0.01 x10^3/uL (0-0.1); BASOPHILS % (AUTO) 0 % (0-1); EOSINOPHILS # (AUTO) 0.13 x10^3/uL (0-0.4); EOSINOPHILS % (AUTO) 1 % (1-7); LYMPHOCYTES % (AUTO) 9 % (22-44); MD NO; MEAN CORPUSCULAR HEMOGLOBIN 32.3 pg (27.0-34.8); MEAN CORPUSCULAR HGB CONC 34.5 g/dL (32.4-35.8); MEAN CORPUSCULAR VOLUME 93.5 fL (80-100); MEAN PLATELET VOLUME 9.6 fL (7.4-10.4); MONOCYTES # (AUTO) 0.05 x10^3/uL (0.2-0.8); MONOCYTES % (AUTO) 1 % (2-9); NEUTROPHILS % (AUTO) 89 % (42-75); PLATELET COUNT 118 x10^3/uL (130-400); RED BLOOD COUNT 4.87 x10^6/uL (3.82-5.3); RED CELL DISTRIBUTION WIDTH 13.8 % (9.6-15.2)
[2018-06-01 04:39] LABS: ALANINE AMINOTRANSFERASE 45 U/L (12-78); ALBUMIN 2.6 g/dL (3.4-5.0); ANION GAP 12 mmol/L (5-15); CALCIUM 9.7 mg/dL (8.5-10.1); CHLORIDE 100 mmol/L (98-107); CREATININE 0.86 mg/dL (0.55-1.02)
[2018-06-01 04:41] LABS: ALKALINE PHOSPHATASE 241 U/L (45-117); TOTAL PROTEIN 7.6 g/dL (6.4-8.2)
[2018-06-01] MEDS: METHOCARBAMOL 750 MG TABLET PO SCH ×3 (05:32→21:52)
[2018-06-01] MEDS: FUROSEMIDE 40 MG/4 ML IV SCH (05:33)
[2018-06-01] MEDS: VARENICLINE 1MG TABLET PO SCH ×2 (08:22→20:06)
[2018-06-01] MEDS: SENNA/DOCUSATE TABLET PO SCH (08:23)
[2018-06-01] MEDS: MULTIVITAMIN 1 TABLET PO SCH (08:23)
[2018-06-01] MEDS: CALCIUM/VITAMIN D3 250-125 TABLET PO SCH (08:23)
[2018-06-01] MEDS: HYDROXYCHLOROQUINE 200 MG TABLET PO SCH (08:23)
[2018-06-01] MEDS: ACETAMINOPHEN 325 MG TABLET PO SCH ×2 (08:24→20:18)
[2018-06-01] MEDS: SERTRALINE 100MG TABLET PO SCH (08:42)
[2018-06-01] MEDS: HEPARIN 5,000 UNITS/ML, 1ML SQ SCH ×2 (08:42→20:18)
[2018-06-01] MEDS: PANTOPROZOLE 40MG TABLET PO SCH ×2 (08:42→20:18)
[2018-06-01] MEDS: BACLOFEN 10 MG TABLET PO SCH ×3 (08:42→20:18)
[2018-06-01] MEDS: FLUTICASONE/VILANTEROL 200-25MCG/INH INH SCH (08:43)
[2018-06-01] MEDS: HYDROmorphone 4MG TABLET PO PRN ×4 (08:49→21:52)
[2018-06-01] MEDS: LEVOTHYROXINE 88 MCG TABLET PO SCH (12:44)
[2018-06-01] MEDS ORDERED: POTASSIUM CHLORIDE 20 MEQ TAB.ER.PRT PO ONE (13:30)
[2018-06-01] MEDS: LIDODERM 5% PATCH TD SCH (20:06)
[2018-06-01] MEDS: PRAVASTATIN 20 MG TABLET PO SCH (20:21)
[2018-06-01] MEDS: LORazepam 1MG TABLET PO PRN (21:52)
[2018-06-02] MEDS: ALBUTEROL/IPRATROPIUM 2.5MG/0.5MG, 3 ML NPPB SCH ×6 (02:00→22:00)
[2018-06-02] MEDS: GABAPENTIN 250 MG/5 ML ORAL SOL PO SCH ×3 (02:41→18:05)
[2018-06-02 04:27] VITALS: BP 123/79
[2018-06-02 04:39] LABS: ALANINE AMINOTRANSFERASE 40 U/L (12-78); ALBUMIN 2.7 g/dL (3.4-5.0); ANION GAP 7 mmol/L (5-15); CALCIUM 9.6 mg/dL (8.5-10.1); CHLORIDE 98 mmol/L (98-107)
[2018-06-02 04:41] LABS: ALKALINE PHOSPHATASE 232 U/L (45-117); BILIRUBIN,TOTAL 1.2 mg/dL (0.2-1.0); TOTAL PROTEIN 7.6 g/dL (6.4-8.2)
[2018-06-02 04:49] LABS: BASOPHILS # (AUTO) 0.01 x10^3/uL (0-0.1); BASOPHILS % (AUTO) 0 % (0-1); EOSINOPHILS # (AUTO) 0.16 x10^3/uL (0-0.4); EOSINOPHILS % (AUTO) 1 % (1-7); LYMPHOCYTES # (AUTO) 1.31 x10^3/uL (1-3.4); LYMPHOCYTES % (AUTO) 11 % (22-44); MD NO; MEAN CORPUSCULAR HEMOGLOBIN 31.7 pg (27.0-34.8); MEAN CORPUSCULAR VOLUME 93.4 fL (80-100); MEAN PLATELET VOLUME 10.1 fL (7.4-10.4); MONOCYTES # (AUTO) 0.02 x10^3/uL (0.2-0.8); MONOCYTES % (AUTO) 0 % (2-9); NEUTROPHILS # (AUTO) 10.71 x10^3/uL (1.8-6.8); NEUTROPHILS % (AUTO) 88 % (42-75); PLATELET COUNT 131 x10^3/uL (130-400); RED BLOOD COUNT 5.26 x10^6/uL (3.82-5.3); RED CELL DISTRIBUTION WIDTH 13.8 % (9.6-15.2)
[2018-06-02] MEDS: METHOCARBAMOL 750 MG TABLET PO SCH ×3 (05:44→21:46)
[2018-06-02] MEDS: CALCIUM/VITAMIN D3 250-125 TABLET PO SCH (09:00)
[2018-06-02] MEDS: HYDROXYCHLOROQUINE 200 MG TABLET PO SCH (09:00)
[2018-06-02] MEDS: MULTIVITAMIN 1 TABLET PO SCH (09:00)
[2018-06-02] MEDS: VARENICLINE 1MG TABLET PO SCH ×2 (09:00→19:36)
[2018-06-02] MEDS: SENNA/DOCUSATE TABLET PO SCH (09:00)
[2018-06-02] MEDS: PANTOPROZOLE 40MG TABLET PO SCH ×2 (09:04→20:10)
[2018-06-02] MEDS: HYDROmorphone 4MG TABLET PO PRN ×2 (09:04→15:28)
[2018-06-02] MEDS: SERTRALINE 100MG TABLET PO SCH (09:04)
[2018-06-02] MEDS: FLUTICASONE/VILANTEROL 200-25MCG/INH INH SCH (09:04)
[2018-06-02] MEDS: POTASSIUM CHLORIDE 20 MEQ TAB.ER.PRT PO SCH ×2 (09:04→20:10)
[2018-06-02] MEDS: HEPARIN 5,000 UNITS/ML, 1ML SQ SCH ×2 (09:07→20:11)
[2018-06-02] MEDS: BACLOFEN 10 MG TABLET PO SCH ×3 (09:15→20:11)
[2018-06-02] MEDS: ACETAMINOPHEN 325 MG TABLET PO SCH ×2 (09:15→20:10)
[2018-06-02] MEDS: FUROSEMIDE 40 MG/4 ML IV SCH ×2 (09:25→17:03)
[2018-06-02] MEDS: LEVOTHYROXINE 88 MCG TABLET PO SCH (11:38)
[2018-06-02] MEDS: LIDODERM 5% PATCH TD SCH (16:34)
[2018-06-02] MEDS: PRAVASTATIN 20 MG TABLET PO SCH (20:11)
[2018-06-02] MEDS: LORazepam 1MG TABLET PO PRN (21:46)
[2018-06-03] MEDS: FUROSEMIDE 40 MG/4 ML IV SCH ×3 (00:50→16:40)
[2018-06-03] MEDS: GABAPENTIN 250 MG/5 ML ORAL SOL PO SCH ×3 (02:30→18:09)
[2018-06-03] MEDS: ALBUTEROL/IPRATROPIUM 2.5MG/0.5MG, 3 ML NPPB SCH ×6 (03:22→22:45)
[2018-06-03 04:28] VITALS: BP 114/72
[2018-06-03 04:56] LABS: ANION GAP 8 mmol/L (5-15); CALCIUM 9.7 mg/dL (8.5-10.1); CHLORIDE 97 mmol/L (98-107)
[2018-06-03 04:57] LABS: CREATININE 0.92 mg/dL (0.55-1.02)
[2018-06-03 05:03] LABS: MEAN CORPUSCULAR HEMOGLOBIN 31.7 pg (27.0-34.8); MEAN CORPUSCULAR HGB CONC 33.7 g/dL (32.4-35.8); MEAN CORPUSCULAR VOLUME 94.1 fL (80-100); RED BLOOD COUNT 5.24 x10^6/uL (3.82-5.3); RED CELL DISTRIBUTION WIDTH 13.5 % (9.6-15.2)
[2018-06-03 05:05] LABS: BASOPHILS # (AUTO) 0.05 x10^3/uL (0-0.1); BASOPHILS % (AUTO) 0 % (0-1); EOSINOPHILS % (AUTO) 2 % (1-7); LYMPHOCYTES # (AUTO) 1.76 x10^3/uL (1-3.4); LYMPHOCYTES % (AUTO) 14 % (22-44); MD SCAN; MONOCYTES # (AUTO) 0.35 x10^3/uL (0.2-0.8); MONOCYTES % (AUTO) 3 % (2-9); NEUTROPHILS # (AUTO) 9.97 x10^3/uL (1.8-6.8); NEUTROPHILS % (AUTO) 81 % (42-75); PLATELET COUNT 146 x10^3/uL (130-400)
[2018-06-03] MEDS: METHOCARBAMOL 750 MG TABLET PO SCH ×3 (05:43→21:41)
[2018-06-03] MEDS: PANTOPROZOLE 40MG TABLET PO SCH ×2 (07:54→21:41)
[2018-06-03] MEDS: HYDROmorphone 4MG TABLET PO PRN ×4 (07:54→21:40)
[2018-06-03] MEDS: BACLOFEN 10 MG TABLET PO SCH ×3 (07:55→21:41)
[2018-06-03] MEDS: VARENICLINE 1MG TABLET PO SCH ×2 (09:00→21:00)
[2018-06-03] MEDS: MULTIVITAMIN 1 TABLET PO SCH (09:35)
[2018-06-03] MEDS: CALCIUM/VITAMIN D3 250-125 TABLET PO SCH (09:36)
[2018-06-03] MEDS: SENNA/DOCUSATE TABLET PO SCH (09:36)
[2018-06-03] MEDS: HYDROXYCHLOROQUINE 200 MG TABLET PO SCH (09:36)
[2018-06-03] MEDS: SERTRALINE 100MG TABLET PO SCH (09:37)
[2018-06-03] MEDS: HEPARIN 5,000 UNITS/ML, 1ML SQ SCH ×2 (09:37→21:30)
[2018-06-03] MEDS: LEVOTHYROXINE 88 MCG TABLET PO SCH (09:37)
[2018-06-03] MEDS: FLUTICASONE/VILANTEROL 200-25MCG/INH INH SCH (09:45)
[2018-06-03] MEDS: POTASSIUM CHLORIDE 20 MEQ TAB.ER.PRT PO SCH ×2 (09:59→21:41)
[2018-06-03] MEDS: ACETAMINOPHEN 325 MG TABLET PO SCH ×2 (09:59→21:40)
[2018-06-03] MEDS: LORazepam 1MG TABLET PO PRN (12:07)
[2018-06-03] MEDS: ONDANSETRON 2MG/ML, 2ML IV PRN ×2 (13:27→20:45)
[2018-06-03] MEDS: LIDODERM 5% PATCH TD SCH (20:43)
[2018-06-03] MEDS: PRAVASTATIN 20 MG TABLET PO SCH (21:40)
[2018-06-04] MEDS: GABAPENTIN 250 MG/5 ML ORAL SOL PO SCH ×4 (02:00→21:22)
[2018-06-04] MEDS: FUROSEMIDE 40 MG/4 ML IV SCH (02:11)
[2018-06-04] MEDS: ALBUTEROL/IPRATROPIUM 2.5MG/0.5MG, 3 ML NPPB SCH ×5 (02:50→19:10)
[2018-06-04 04:00] VITALS: BP 118/71
[2018-06-04] MEDS: METHOCARBAMOL 750 MG TABLET PO SCH ×3 (05:48→21:22)
[2018-06-04 06:03] LABS: ANION GAP 6 mmol/L (5-15); CALCIUM 9.5 mg/dL (8.5-10.1); CHLORIDE 96 mmol/L (98-107)
[2018-06-04 06:08] LABS: CREATININE 0.97 mg/dL (0.55-1.02)
[2018-06-04] MEDS: HYDROmorphone 4MG TABLET PO PRN ×3 (06:44→20:15)
[2018-06-04] MEDS: VARENICLINE 1MG TABLET PO SCH ×2 (09:00→20:16)
[2018-06-04] MEDS: SENNA/DOCUSATE TABLET PO SCH (09:16)
[2018-06-04] MEDS: SERTRALINE 100MG TABLET PO SCH (09:17)
[2018-06-04] MEDS: HYDROXYCHLOROQUINE 200 MG TABLET PO SCH (09:17)
[2018-06-04] MEDS: LEVOTHYROXINE 88 MCG TABLET PO SCH (09:17)
[2018-06-04] MEDS: CALCIUM/VITAMIN D3 250-125 TABLET PO SCH (09:17)
[2018-06-04] MEDS: ACETAMINOPHEN 325 MG TABLET PO SCH ×2 (09:18→20:16)
[2018-06-04] MEDS: MULTIVITAMIN 1 TABLET PO SCH (09:18)
[2018-06-04] MEDS: PANTOPROZOLE 40MG TABLET PO SCH (09:18)
[2018-06-04] MEDS: BACLOFEN 10 MG TABLET PO SCH ×3 (09:18→20:15)
[2018-06-04] MEDS: HEPARIN 5,000 UNITS/ML, 1ML SQ SCH ×2 (09:19→20:14)
[2018-06-04] MEDS: FLUTICASONE/VILANTEROL 200-25MCG/INH INH SCH (09:30)
[2018-06-04] MEDS ORDERED: FUROSEMIDE 40 MG/4 ML IV ONE (10:00)
[2018-06-04] MEDS ORDERED: ACET500V7 IVPush (13:34)
[2018-06-04] MEDS: AcetaZOLAMIDE INJ 500 MG IVPush SCH ×2 (15:49→20:13)
[2018-06-04] MEDS ORDERED: FUROSEMIDE 40 MG/4 ML IV SCH (17:00)
[2018-06-04] MEDS: LIDODERM 5% PATCH TD SCH (20:00)
[2018-06-04] MEDS: PRAVASTATIN 20 MG TABLET PO SCH (20:15)
[2018-06-04] MEDS: LORazepam 1MG TABLET PO PRN (21:22)
[2018-06-05] MEDS: ALBUTEROL/IPRATROPIUM 2.5MG/0.5MG, 3 ML NPPB SCH ×3 (00:07→06:00)
[2018-06-05 04:00] VITALS: BP 116/72
[2018-06-05 04:35] LABS: BASOPHILS # (AUTO) 0.02 x10^3/uL (0-0.1); BASOPHILS % (AUTO) 0 % (0-1); EOSINOPHILS % (AUTO) 1 % (1-7); LYMPHOCYTES # (AUTO) 1.79 x10^3/uL (1-3.4); LYMPHOCYTES % (AUTO) 13 % (22-44); MD NO; MEAN CORPUSCULAR HEMOGLOBIN 31.4 pg (27.0-34.8); MEAN CORPUSCULAR HGB CONC 33.8 g/dL (32.4-35.8); MEAN CORPUSCULAR VOLUME 92.8 fL (80-100); MEAN PLATELET VOLUME 10.6 fL (7.4-10.4); MONOCYTES # (AUTO) 0.65 x10^3/uL (0.2-0.8); MONOCYTES % (AUTO) 5 % (2-9); NEUTROPHILS % (AUTO) 81 % (42-75); PLATELET COUNT 189 x10^3/uL (130-400); RED BLOOD COUNT 4.97 x10^6/uL (3.82-5.3); RED CELL DISTRIBUTION WIDTH 13.4 % (9.6-15.2)
[2018-06-05 04:54] LABS: ANION GAP 8 mmol/L (5-15); CALCIUM 9.4 mg/dL (8.5-10.1); CHLORIDE 94 mmol/L (98-107); CREATININE 0.88 mg/dL (0.55-1.02)
[2018-06-05] MEDS: METHOCARBAMOL 750 MG TABLET PO SCH (05:55)
[2018-06-05] MEDS: GABAPENTIN 250 MG/5 ML ORAL SOL PO SCH (05:55)
[2018-06-05] MEDS ORDERED: POTASSIUM CHLORIDE 20 MEQ TAB.ER.PRT PO SCH (08:00)
[2018-06-05] MEDS ORDERED: AcetaZOLAMIDE INJ 500 MG IVPush SCH (09:00)
[2018-06-05] MEDS: VARENICLINE 1MG TABLET PO SCH (09:00)
[2018-06-05] MEDS: ACETAMINOPHEN 325 MG TABLET PO SCH (09:00)
[2018-06-05] MEDS: CALCIUM/VITAMIN D3 250-125 TABLET PO SCH (09:04)
[2018-06-05] MEDS: BACLOFEN 10 MG TABLET PO SCH (09:05)
[2018-06-05] MEDS: SENNA/DOCUSATE TABLET PO SCH (09:05)
[2018-06-05] MEDS: HYDROXYCHLOROQUINE 200 MG TABLET PO SCH (09:05)
[2018-06-05] MEDS: MULTIVITAMIN 1 TABLET PO SCH (09:05)
[2018-06-05] MEDS: PANTOPROZOLE 40MG TABLET PO SCH (09:05)
[2018-06-05] MEDS: SERTRALINE 100MG TABLET PO SCH (09:06)
[2018-06-05] MEDS: HEPARIN 5,000 UNITS/ML, 1ML SQ SCH (09:06)
[2018-06-05] MEDS: LEVOTHYROXINE 88 MCG TABLET PO SCH (09:06)
[2018-06-05] MEDS: FLUTICASONE/VILANTEROL 200-25MCG/INH INH SCH (09:07)
[2018-06-05] MEDS: HYDROmorphone 4MG TABLET PO PRN (10:37)
[2018-06-05] MEDS: ONDANSETRON 2MG/ML, 2ML IV PRN (12:11)
== END 2018-06-05 13:12 | DRG 471 ==
LOC: 4EST 17:27 → CCU 05-23 11:22 → 4NOR 05-24 14:32 → CCU 05-26 14:29
PROVIDERS: ADMIT Neurological Surgery; ATTEND Internal Medicine
PROC: 0RB30ZZ Excision of Cervical Vertebral Disc, Open Approach (ICD-10-PCS; 2018-05-23)
PROC: 5A09357 Assistance with Respiratory Ventilation, Less than 24 Consecutive Hours, Continuous Positive Airway Pressure (ICD-10-PCS; 2018-05-23)
PROC: 30233R1 Transfusion of Nonautologous Platelets into Peripheral Vein, Percutaneous Approach (ICD-10-PCS; 2018-05-23)
PROC: 0RG20A0 Fusion of 2 or more Cervical Vertebral Joints with Interbody Fusion Device, Anterior Approach, Anterior Column, Open Approach (ICD-10-PCS; principal; 2018-05-23 07:30)
PROC: 5A09357 Assistance with Respiratory Ventilation, Less than 24 Consecutive Hours, Continuous Positive Airway Pressure (ICD-10-PCS; 2018-05-25)
PROC: 5A09357 Assistance with Respiratory Ventilation, Less than 24 Consecutive Hours, Continuous Positive Airway Pressure (ICD-10-PCS; 2018-05-26)
PROC: 5A09357 Assistance with Respiratory Ventilation, Less than 24 Consecutive Hours, Continuous Positive Airway Pressure (ICD-10-PCS; 2018-06-02)
PROC: 5A09357 Assistance with Respiratory Ventilation, Less than 24 Consecutive Hours, Continuous Positive Airway Pressure (ICD-10-PCS; 2018-06-03)
PROC: 5A09357 Assistance with Respiratory Ventilation, Less than 24 Consecutive Hours, Continuous Positive Airway Pressure (ICD-10-PCS; 2018-06-05)
DX: M48.02 Spinal stenosis, cervical region (principal); J81.0 Acute pulmonary edema; G82.50 Quadriplegia, unspecified; J96.01 Acute respiratory failure with hypoxia; D69.3 Immune thrombocytopenic purpura; F11.20 Opioid dependence, uncomplicated; M50.022 Cervical disc disorder at C5-C6 level with myelopathy; J98.11 Atelectasis; Z68.41 Body mass index [BMI] 40.0-44.9, adult; Z91.041 Radiographic dye allergy status; D89.9 Disorder involving the immune mechanism, unspecified; M35.00 Sjogren syndrome, unspecified; G89.4 Chronic pain syndrome; E03.9 Hypothyroidism, unspecified; J44.9 Chronic obstructive pulmonary disease, unspecified; G47.33 Obstructive sleep apnea (adult) (pediatric); I77.6 Arteritis, unspecified; E66.01 Morbid (severe) obesity due to excess calories; F17.210 Nicotine dependence, cigarettes, uncomplicated; M54.12 Radiculopathy, cervical region; R26.2 Difficulty in walking, not elsewhere classified; I51.7 Cardiomegaly; M25.78 Osteophyte, vertebrae; Z51.5 Encounter for palliative care; Z79.52 Long term (current) use of systemic steroids; Z82.0 Family history of epilepsy and other diseases of the nervous system; Z82.49 Family history of ischemic heart disease and other diseases of the circulatory system; Z88.1 Allergy status to other antibiotic agents
CPT/HCPCS: 36415; 36600; 72040; 82805; J7620; 70490; 71045; 71250; 78582; 80048; 80053; 82803; 83735; 84100; 84484; 85014; 85025; 85049; 85576; 85610; 85730; 86850; 86900; 87070; 87081; 87205; 93005; 93306; 93970; 94640; 94660; C1713; J0690; J1100; J1170; J1644; J1940; J2185; J2250; J2405; J2704; J3010; J3301; J3480; J7509; A9540; A9558; C1762; C9898; J1120; J1720; J2800; J2930; J7120; P9035; Q9968